=== PATIENT | male | born 1970 | race Caucasian/White ===

== ENCOUNTER 2018-03-30 17:43 | Inpatient (IN) | payer BC ==
[~2018-03-30] VITALS: Ht 182.9 cm; Wt 156.6 kg
[2018-03-30] MEDS ORDERED: PRILOSEC 20MG20 MG PO (18:24)
[2018-03-30] MEDS ORDERED: ASPIRIN 81M81 MG/TA2 PO (18:24)
[2018-03-30] MEDS ORDERED: TRIBENZOR 10 MG1 TA1 PO (18:24)
[2018-03-30 18:25] LABS: BASO # 0.1 (0.0-0.2); BASO % 0.5 % (0.0-2.0); EOS # 0.3 (0.0-0.7); EOS % 2.5 % (0-4.0); GRAN # 8.7 (1.4-6.5); GRAN % 65.3 % (42.2-75.2); HEMOGLOBIN 14.8 g/dl (13.5-18.0); LYMPH # 2.8 (1.2-3.4); LYMPH % 21.1 % (20.0-51.0); MEAN CELL VOLUME 91 fl (80.0-100.0); MEAN CORPUSCULAR HEMOGLOBIN 32 pg (27.0-31.0); MEAN CORPUSCULAR HGB CONC 35 g/dl (33.0-37.0); MEAN PLATELET VOLUME 10.1 fl (7.4-10.4); MONO # 1.3 (0.1-0.6); PLATELET COUNT 182 K/mm3 (130-400); RED BLOOD COUNT 4.64 M/mm3 (4.20-5.60); REDCELL DISTRIBUTION WIDTH-CV 13.5 % (11.5-14.5)
[2018-03-30 18:41] LABS: BILIRUBIN,TOTAL 0.8 mg/dL (0.0-1.0); CALCIUM 9.5 mg/dL (8.4-10.2); CREATININE, serum 1.08 mg/dL (0.66-1.25); POTASSIUM 3.4 mmol/L (3.4-5.0); TOTAL PROTEIN 7.9 gm/dL (6.4-8.2)
[2018-03-30 19:21] LABS: COLLECTION METHOD CLEAN CATCH
[2018-03-30 19:27] LABS: MUCOUS Present /lpf; PH 6 (5-8); SQUAMOUS EPITHELIAL 0-2 /hpf; URINE APPEARANCE Clear; URINE BACTERIA None Seen /hpf; URINE BILIRUBIN Negative (NEGATIVE); URINE BLOOD 1+ (NEGATIVE); URINE COLOR Yellow; URINE GLUCOSE Negative (NEGATIVE); URINE KETONE Negative (NEGATIVE); URINE LEUKOCYTE ESTERASE Trace (NEGATIVE); URINE NITRATE Negative (NEGATIVE); URINE PROTEIN(semi-quant) Negative (NEGATIVE); URINE RBC 0-2 /hpf
[2018-03-30 22:50] VITALS: BP 140/74; PULSE 88; TEMP 97.9
[2018-03-31 03:47] VITALS: BP 116/68; PULSE 78; TEMP 99.6
[2018-03-31 06:56] LABS: ALBUMIN 3.2 gm/dL (3.5-5.0); BILIRUBIN,TOTAL 0.9 mg/dL (0.0-1.0); CALCIUM 8.6 mg/dL (8.4-10.2); CREATININE, serum 1.06 mg/dL (0.66-1.25); POTASSIUM 3.5 mmol/L (3.4-5.0); TOTAL PROTEIN 6.6 gm/dL (6.4-8.2)
[2018-03-31 06:58] LABS: BASO # 0.1 (0.0-0.2); BASO % 0.6 % (0.0-2.0); EOS # 0.4 (0.0-0.7); EOS % 4.2 % (0-4.0); GRAN # 5.9 (1.4-6.5); GRAN % 61.8 % (42.2-75.2); HEMATOCRIT 37.9 % (42.0-52.0); HEMOGLOBIN 13.2 g/dl (13.5-18.0); LYMPH # 2.1 (1.2-3.4); LYMPH % 22.4 % (20.0-51.0); MEAN CELL VOLUME 92 fl (80.0-100.0); MEAN CORPUSCULAR HEMOGLOBIN 32 pg (27.0-31.0); MEAN CORPUSCULAR HGB CONC 35 g/dl (33.0-37.0); MEAN PLATELET VOLUME 10.7 fl (7.4-10.4); MONO % 10.2 % (1.7-9.3); PLATELET COUNT 165 K/mm3 (130-400); RED BLOOD COUNT 4.13 M/mm3 (4.20-5.60); REDCELL DISTRIBUTION WIDTH-CV 13.5 % (11.5-14.5)
[2018-03-31 08:04] VITALS: BP 120/64; PULSE 72; TEMP 98.4
[2018-03-31 11:48] VITALS: BP 145/73; PULSE 72; TEMP 97.8
[2018-03-31 16:48] VITALS: BP 133/68; PULSE 74; TEMP 99
[2018-03-31 19:09] VITALS: BP 145/82; PULSE 88; TEMP 98.4
[2018-03-31 23:32] VITALS: BP 132/70; PULSE 68; TEMP 98.4
[2018-04-01 04:12] VITALS: BP 133/76; PULSE 80; TEMP 98
[2018-04-01 07:34] LABS: BASO # 0.1 (0.0-0.2); BASO % 0.8 % (0.0-2.0); EOS # 0.4 (0.0-0.7); EOS % 4.5 % (0-4.0); GRAN # 5.8 (1.4-6.5); GRAN % 66.6 % (42.2-75.2); HEMATOCRIT 37.1 % (42.0-52.0); HEMOGLOBIN 12.9 g/dl (13.5-18.0); LYMPH # 1.5 (1.2-3.4); LYMPH % 17.3 % (20.0-51.0); MEAN CELL VOLUME 92 fl (80.0-100.0); MEAN CORPUSCULAR HEMOGLOBIN 32 pg (27.0-31.0); MEAN CORPUSCULAR HGB CONC 35 g/dl (33.0-37.0); MEAN PLATELET VOLUME 10.8 fl (7.4-10.4); MONO # 0.9 (0.1-0.6); MONO % 10.3 % (1.7-9.3); PLATELET COUNT 165 K/mm3 (130-400); RED BLOOD COUNT 4.02 M/mm3 (4.20-5.60); REDCELL DISTRIBUTION WIDTH-CV 13.4 % (11.5-14.5)
[2018-04-01 07:36] LABS: CALCIUM 8.6 mg/dL (8.4-10.2); CREATININE, serum 1.12 mg/dL (0.66-1.25); POTASSIUM 3.6 mmol/L (3.4-5.0)
[2018-04-01 08:27] VITALS: BP 137/74; PULSE 76; TEMP 98.2
[2018-04-01 12:33] VITALS: BP 150/87; PULSE 80; TEMP 98.2
[2018-04-01 15:52] VITALS: BP 135/68; PULSE 83; TEMP 98.1
[2018-04-01 20:00] VITALS: BP 137/72; PULSE 80; TEMP 98.5
[2018-04-01 23:46] VITALS: BP 124/74; PULSE 72; TEMP 98
[2018-04-02 04:17] VITALS: BP 139/62; PULSE 67; TEMP 98.6
[2018-04-02 08:00] VITALS: BP 130/76; PULSE 72; TEMP 98.2
[2018-04-02 11:24] VITALS: BP 175/83; PULSE 85; TEMP 97.8
[2018-04-02 15:57] VITALS: BP 122/52; PULSE 72; TEMP 98.6
[2018-04-02 20:49] VITALS: BP 124/52; PULSE 71; TEMP 98.7
[2018-04-03] VITALS (12 sets, daily range): BP systolic 103–142; BP diastolic 54–79; PULSE 67–96; TEMP 98.1–98.9
[2018-04-03 09:44] LABS: CREATININE, serum 1.27 mg/dL (0.66-1.25)
[2018-04-04 00:56] VITALS: BP 139/70; PULSE 58; TEMP 98.5
[2018-04-04 03:42] VITALS: BP 135/78; PULSE 68; TEMP 98.5
[2018-04-04 07:03] LABS: CALCIUM 8.8 mg/dL (8.4-10.2); CREATININE, serum 1.15 mg/dL (0.66-1.25); POTASSIUM 3.2 mmol/L (3.4-5.0)
[2018-04-04 07:31] VITALS: BP 134/70; PULSE 63; TEMP 98
[2018-04-04 08:39] LABS: BASO # 0.1 (0.0-0.2); BASO % 0.6 % (0.0-2.0); GRAN # 8.6 (1.4-6.5); GRAN % 83.1 % (42.2-75.2); HEMOGLOBIN 12.8 g/dl (13.5-18.0); LYMPH % 9.2 % (20.0-51.0); MEAN CELL VOLUME 90 fl (80.0-100.0); MEAN CORPUSCULAR HEMOGLOBIN 32 pg (27.0-31.0); MEAN CORPUSCULAR HGB CONC 35 g/dl (33.0-37.0); MONO # 0.6 (0.1-0.6); MONO % 6.2 % (1.7-9.3); PLATELET COUNT 199 K/mm3 (130-400); RED BLOOD COUNT 4.04 M/mm3 (4.20-5.60); REDCELL DISTRIBUTION WIDTH-CV 13.1 % (11.5-14.5)
[2018-04-04 08:43] LABS: HEMATOCRIT 36.3 % (42.0-52.0)
[2018-04-04 11:14] VITALS: BP 155/94; PULSE 70; TEMP 98.7
[2018-04-04 15:40] VITALS: BP 146/76; PULSE 61; TEMP 98.2
[2018-04-04 20:59] VITALS: BP 160/89; PULSE 70; TEMP 98.1
[2018-04-05 00:17] VITALS: BP 145/73; PULSE 58; TEMP 98.5
[2018-04-05 03:47] VITALS: BP 124/61; PULSE 57; TEMP 98.5
[2018-04-05 06:19] LABS: BASO # 0.1 (0.0-0.2); BASO % 1.2 % (0.0-2.0); EOS # 0.5 (0.0-0.7); EOS % 5.2 % (0-4.0); GRAN # 4.8 (1.4-6.5); GRAN % 55.8 % (42.2-75.2); HEMOGLOBIN 12.7 g/dl (13.5-18.0); LYMPH # 2.2 (1.2-3.4); MEAN CELL VOLUME 90 fl (80.0-100.0); MEAN CORPUSCULAR HEMOGLOBIN 32 pg (27.0-31.0); MEAN CORPUSCULAR HGB CONC 35 g/dl (33.0-37.0); MEAN PLATELET VOLUME 10.3 fl (7.4-10.4); MONO # 0.9 (0.1-0.6); MONO % 10.8 % (1.7-9.3); PLATELET COUNT 200 K/mm3 (130-400); RED BLOOD COUNT 4.02 M/mm3 (4.20-5.60); REDCELL DISTRIBUTION WIDTH-CV 13.2 % (11.5-14.5)
[2018-04-05 06:24] LABS: HEMATOCRIT 36.3 % (42.0-52.0)
[2018-04-05 06:37] LABS: CALCIUM 8.5 mg/dL (8.4-10.2); CREATININE, serum 1.37 mg/dL (0.66-1.25); POTASSIUM 3.1 mmol/L (3.4-5.0)
[2018-04-05 07:33] VITALS: BP 138/83; PULSE 62; TEMP 98.2
[2018-04-05 12:45] VITALS: BP 159/87; PULSE 73; TEMP 98.8
[2018-04-05 16:12] VITALS: BP 158/92; PULSE 65; TEMP 97.9
[2018-04-05 19:41] VITALS: BP 162/94; PULSE 76; TEMP 98.8
[2018-04-06 00:27] VITALS: BP 158/84; PULSE 80; TEMP 98.6
[2018-04-06 04:01] VITALS: BP 148/84; PULSE 78; TEMP 98.5
[2018-04-06 06:38] LABS: BASO # 0.1 (0.0-0.2); BASO % 1.5 % (0.0-2.0); EOS # 0.4 (0.0-0.7); EOS % 5.6 % (0-4.0); GRAN % 43.8 % (42.2-75.2); HEMOGLOBIN 12.5 g/dl (13.5-18.0); LYMPH # 2.5 (1.2-3.4); LYMPH % 36.8 % (20.0-51.0); MEAN CELL VOLUME 91 fl (80.0-100.0); MEAN CORPUSCULAR HEMOGLOBIN 32 pg (27.0-31.0); MEAN CORPUSCULAR HGB CONC 35 g/dl (33.0-37.0); MEAN PLATELET VOLUME 10.3 fl (7.4-10.4); MONO # 0.8 (0.1-0.6); PLATELET COUNT 207 K/mm3 (130-400); RED BLOOD COUNT 3.97 M/mm3 (4.20-5.60); REDCELL DISTRIBUTION WIDTH-CV 13.1 % (11.5-14.5)
[2018-04-06 06:39] LABS: HEMATOCRIT 36.1 % (42.0-52.0)
[2018-04-06 06:57] LABS: CALCIUM 8.9 mg/dL (8.4-10.2); CREATININE, serum 1.43 mg/dL (0.66-1.25); POTASSIUM 3.3 mmol/L (3.4-5.0)
[2018-04-06 09:28] VITALS: BP 161/95; PULSE 67; TEMP 98.3
[2018-04-06 12:32] VITALS: BP 154/82; PULSE 58; TEMP 97.8
[2018-04-06 15:34] VITALS: BP 171/78; PULSE 57; TEMP 98.2
[2018-04-06 20:02] VITALS: BP 151/76; PULSE 65; TEMP 97.8
[2018-04-07 04:31] VITALS: BP 140/77; PULSE 55; TEMP 98.4
[2018-04-07 06:52] LABS: BASO # 0.1 (0.0-0.2); BASO % 1.6 % (0.0-2.0); EOS # 0.4 (0.0-0.7); EOS % 6.4 % (0-4.0); GRAN # 3.2 (1.4-6.5); GRAN % 47.1 % (42.2-75.2); HEMOGLOBIN 12.1 g/dl (13.5-18.0); LYMPH # 2.4 (1.2-3.4); LYMPH % 34.3 % (20.0-51.0); MEAN CELL VOLUME 91 fl (80.0-100.0); MEAN CORPUSCULAR HEMOGLOBIN 32 pg (27.0-31.0); MEAN CORPUSCULAR HGB CONC 35 g/dl (33.0-37.0); MEAN PLATELET VOLUME 10.2 fl (7.4-10.4); MONO # 0.6 (0.1-0.6); MONO % 9.3 % (1.7-9.3); PLATELET COUNT 209 K/mm3 (130-400); RED BLOOD COUNT 3.83 M/mm3 (4.20-5.60); REDCELL DISTRIBUTION WIDTH-CV 13.2 % (11.5-14.5)
[2018-04-07 07:12] LABS: CALCIUM 8.6 mg/dL (8.4-10.2); CREATININE, serum 1.27 mg/dL (0.66-1.25); POTASSIUM 3.1 mmol/L (3.4-5.0)
[2018-04-07 08:55] VITALS: BP 174/92; PULSE 56; TEMP 98.3
[2018-04-07] MEDS ORDERED: AMOXICILLIN 8751 TAB PO (09:10)
[2018-04-07] MEDS ORDERED: ULTRAM 50MG TAB50 MG PO (09:17)
[2018-04-07] MEDS ORDERED: PROBIOTIC-MAJOR PO (09:17)
== END 2018-04-07 11:00 | disposition home or self-care (01) | DRG 854 ==
LOC: COL.ER 17:43 → SURG 22:20
PROVIDERS: Emergency Medicine; Internal Medicine; Nurse Practitioner Family; Physician Assistant; Surgery
PROC: 0JDB0ZZ Extraction of Perineum Subcutaneous Tissue and Fascia, Open Approach (ICD-10-PCS; principal; 2018-04-03 16:00)
DX: A41.9 Sepsis, unspecified organism (principal); Z68.42 Body mass index [BMI] 45.0-49.9, adult; L03.314 Cellulitis of groin; N17.9 Acute kidney failure, unspecified; N49.2 Inflammatory disorders of scrotum; I10 Essential (primary) hypertension; F17.210 Nicotine dependence, cigarettes, uncomplicated; E66.01 Morbid (severe) obesity due to excess calories; E87.6 Hypokalemia; R73.9 Hyperglycemia, unspecified
CPT/HCPCS: 99223-AI; 99231-AI; 99232-AI; 99233-AI; 99239; C9113; J0330; J1100; J1644; J1815; J2405; J2543; J2704; J3010; J3370; J7030; J7040; J7050; J7120; Q9967

== ENCOUNTER → 2018-06-30 | Outpatient (CLI) | payer BC ==
[~2018-06-30] MED LIST: AMOXICILLIN 8751 TAB PO; ASPIRIN 81M81 MG/TA2 PO; PRILOSEC 20MG20 MG PO; PROBIOTIC-MAJOR PO; TRIBENZOR 10 MG1 TA1 PO; ULTRAM 50MG TAB50 MG PO
== END ==
LOC: ZCOL.LAB 12:07
DX: N49.2 Inflammatory disorders of scrotum (principal)

== ENCOUNTER → 2018-09-07 | Outpatient (CLI) | payer BC | LOC: ZCOL.LAB 16:11 | DX: L02.215 Cutaneous abscess of perineum (principal) ==

== ENCOUNTER → 2018-10-20 | Outpatient (CLI) | payer BC | LOC: ZCOL.LAB 17:19 | DX: L02.215 Cutaneous abscess of perineum (principal) ==